=== PATIENT | female | born 1940 | race Caucasian/White ===

== ENCOUNTER 2022-06-04 12:19 | Emergency (ER) | payer MEDICARE, SELFPAY ==
[2022-06-04 12:21] VITALS: BP 198/74; PULSE 54; RESP 18; TEMP 36.6; O2SAT 97; BMI 33.4
--- NOTE | 2022-06-04 12:55 | EX.ED.DYSGE1 ---
HPI History of Present Illness Chief Complaint: Headache Detail of Chief Complaint: Scalp pain Informant: patient Onset/Context/Timing Onset: Yesterday Timing: Intermittent Narrative Narrative: Patient presents with intermittent sharp stabbing pain over the right posterior scalp. Symptoms started yesterday. She denies any known injury. She denies history of headaches or similar symptoms. [facility] Medical History Atrial fibrillation High cholesterol Hypertension Home Medications chlorthalidone 25 mg tablet 25 mg PO DAILY 06/04/22 [History Last Taken Unknown] flecainide 100 mg tablet 100 mg PO DAILY 06/04/22 [History Last Taken Unknown] gabapentin 300 mg capsule 300 mg PO BID #10 caps 06/04/22 [Rx Last Taken Unknown] lisinopril 40 mg tablet 40 mg PO DAILY 06/04/22 [History Last Taken Unknown] metoprolol succinate 25 mg tablet,extended release 24 hr 25 mg PO DAILY 06/04/22 [History Last Taken Unknown] pravastatin 20 mg tablet 20 mg PO QHS 06/04/22 [History Last Taken Unknown] prednisone 20 mg tablet 40 mg PO DAILY #10 tabs 06/04/22 [Rx Last Taken Unknown] Allergy/AdvReac Type Severity Reaction Status Date / Time No Known Allergies Allergy Verified 06/04/22 12:22 Social History Smoking Status: Never smoker ROS ROS ED Constitutional Constitutional ED: Denies chills or fever(s) Eyes Eyes: Denies change in vision or discharge from eye(s) ENT ENT ED: Denies discharge from eye(s), rhinorrhea or sore throat Cardiovascular Cardiovascular: Denies chest pain or palpitations Respiratory/Chest Respiratory/Chest: Denies cough or dyspnea Gastrointestinal Gastrointestinal: Denies abdominal pain, nausea or vomiting Musculoskeletal Musculoskeletal: Denies back pain, extremity pain or neck pain Integumentary Denies Abrasions or rash Neurologic Neurologic: Reports headache(s); Denies weakness Psychiatric Psychiatric: Denies anxiety or depression Allergic/Immunologic Allergic/Immunologic ED: Denies lip swelling or urticaria EXAM Physical Exam Const Vital Signs: 06/04/22 12:21 Temperature 98 F Temperature Source Temporal Pulse Rate 54 L Respiratory Rate 18 Blood Pressure 198/74 H Blood Pressure Mean 115 Pulse Ox 97 Oxygen Delivery Method Room Air Positive well nourished and well developed General Appearance ED: well developed HEENT Reports normocephalic and head/scalp atraumatic HEENT Narrative: Reproducible tenderness over the right posterior occipital scalp. No overlying skin change. Eyes PERRL and EOMs intact bilaterally Neck supple Chest Wall inspection of chest normal and palpation of chest normal Resp normal respiratory effort and clear to auscultation bilaterally Cardio regular rate and regular rhythm GI normal to inspection, nondistended, normoactive bowel sounds Palpation: soft Extremity normal to inspection Neuro oriented x3 and no sensory deficits noted Sensorium / Orientation: alert Motor Exam: strength 5/5 throughout Psych mental status grossly normal Skin no rashes or lesions noted MDM MDM MDM Narrative Medical decision making narrative: I looked in [facility] to find recent lab work, however cannot see anything since 2013. In light of this a CBC and chemistry draw is ordered. I wanted to evaluate her renal function prior to prescribing gabapentin. Lab Data Attestation: I reviewed the patient's lab results. Labs: Laboratory Results - last 24 hr 06/04/22 06/04/22 12:59 12:59 WBC 8.5 RBC 4.75 Hgb 14.5 Hct 42.9 MCV 90.3 MCH 30.5 MCHC 33.8 RDW Std Deviation 42.1 RDW Coeff of Kaia 12.8 Plt Count 221 MPV 11.1 Immature Gran % (Auto) 0.200 Neut % (Auto) 50.2 Lymph % (Auto) 38.2 [place] % (Auto) 5.4 Eos % (Auto) 5.4 H Baso % (Auto) 0.6 Absolute Neuts (auto) 4.2 Absolute Lymphs (auto) 3.23 Nucleated RBC % 0 Sodium 137 Potassium 3.5 Chloride 102 Carbon Dioxide 30.0 Anion Gap 5 BUN 28 H Creatinine 1.32 H Estim Creat Clear Calc 31.82 Est GFR (MDRD) Af Amer 50 L Est GFR (MDRD) Non-Af 41 L BUN/Creatinine Ratio 21.2 H Glucose 104 Calcium 9.7 Treatment and Re-Evaluation :: CBC is unremarkable. Chemistry studies significant for a BUN of 28 and creatinine 1.32. Creatinine clearance is 31. Patient's exam and story is consistent with neuropathic pain over the right scalp. I do not believe she needs imaging or further studies. She will be treated with a short course of gabapentin as well as prednisone. She will be referred to sherry Alonso on the no doc list for follow-up. Discharge Plan Triage Chief Complaint: Headache ED Provider: Gloria Alexandra Dx/Rx/DC Orders Clinical Impression: Neuropathic pain Instructions: ED Neuropathy, Peripheral Prescriptions: New gabapentin 300 mg capsule 300 mg PO BID Qty: 10 0RF prednisone 20 mg tablet 40 mg PO DAILY Qty: 10 0RF No Action chlorthalidone 25 mg tablet 25 mg PO DAILY flecainide 100 mg tablet 100 mg PO DAILY pravastatin 20 mg tablet 20 mg PO QHS metoprolol succinate 25 mg tablet extended release 24 hr 25 mg PO DAILY lisinopril 40 mg tablet 40 mg PO DAILY Primary Care Provider: Care Physician,No Primary Referrals: Jeanne Ramos MD [Med Staff - Learning Support Teacher] - 1-2 Weeks Care Physician,No Primary [Primary Care Provider] - Disposition Disposition: Home, Self Care
[2022-06-04 13:04] LABS: Absolute Lymphocyte Count 3.23 X10^3/uL (0.83-4.51); Absolute Neutrophil Count 4.2 X10^3/uL (2.0-7.7); Basophil# 0.05 X10^3/uL; Basophil% 0.6 % (0-1); Eosinophil# 0.46 X10^3/uL; Eosinophils% 5.4 % (0-5); Hematocrit 42.9 % (37-47); Hemoglobin 14.5 g/dL (12.0-15.0); Lymphocyte # 3.23 X10^3/ul (0.83-4.51); Lymphocyte % 38.2 % (19-41); Mean Corp Hgb Conc 33.8 g/dL (32-36); Mean Corpuscular Hgb 30.5 pg (27.0-32.0); Mean Corpuscular Volume 90.3 fL (81-99); Mean Platelet Vol. 11.1 fl (6.2-12.0); Monocyte# 0.46 X10^3/uL; Monocyte% 5.4 % (0-10); NRBC Flagged by Analyzer 0 % (0-5); Neutrophil # 4.23 X10^3/uL (2.7-7.7); Neutrophil % 50.2 % (47-70); Platelet Count 221 K/mm3 (150-450); RBC Distribution Width CV 12.8 % (11.6-14.6); RBC Distribution Width SD 42.1 fl (35.1-43.9); Red Blood Count 4.75 M/mm3 (4.2-5.4); White Blood Count 8.5 K/mm3 (4.4-11.0)
[2022-06-04 13:17] LABS: Anion Gap 5 (5-15); BUN 28 mg/dL (7-18); BUN/Creat Ratio 21.2 RATIO (10-20); Calcium,Total 9.7 mg/dL (8.5-10.1); Chloride 102 mmol/L (98-107); Creatinine, Serum 1.32 mg/dL (0.55-1.02); EST Glomerular Filtration Rate 41 mL/min (>60); Est Glom Filt Rate - Afr Amer 50 mL/min (>60); Estimated Creatinine Clearance 31.82 ml/min; Glucose 104 mg/dL (74-106); Potassium 3.5 mmol/L (3.5-5.1); Sodium Level 137 mmol/L (136-145)
[2022-06-04] MEDS: predniSONE 20 MG Tablet 40 MG PO (13:55)
[2022-06-04] MEDS: Gabapentin 300 MG Capsule PO (13:55)
[2022-06-04 13:56] VITALS: BP 135/48; PULSE 44; RESP 16; O2SAT 97
== END 2022-06-04 14:01 | disposition home or self-care (01) ==
PROVIDERS: Emergency Provider Emergency Medicine; Visit Provider Emergency Medicine
DX: G62.9 Polyneuropathy, unspecified (principal); E78.00 Pure hypercholesterolemia, unspecified; I10 Essential (primary) hypertension; Z79.899 Other long term (current) drug therapy; Z79.52 Long term (current) use of systemic steroids
CPT/HCPCS: 80048; 85025; 99284

== ENCOUNTER → 2023-11-09 | Outpatient (CLI) | payer MEDICARE, SELFPAY ==
--- NOTE | 2023-11-09 11:00 | RAD_ITS ---
EXAM: XR LEFT KNEE COMPLETE, 4 OR MORE VIEWS CLINICAL INDICATION: left therapy TECHNIQUE: Four or more views of the left knee. COMPARISON: No relevant prior studies available. FINDINGS: BONES/JOINTS: Marked narrowing of the medial knee joint compartment. Moderate marginal osteophytosis. No acute fracture, subluxation or joint effusion. Mild articular cartilage calcification. SOFT TISSUES: Normal. No soft tissue swelling or gas. No radiopaque foreign body. RAD/Knee 4 or More Views IMPRESSION: No acute abnormality. Prominent osteoarthritis Electronically Signed: Adam Luna MD at 13:09 EDT ,
[2023-11-09 12:47] LABS: Hematocrit 41.2 % (37-47); Hemoglobin 13.2 g/dL (12.0-15.0); Mean Corpuscular Volume 90.5 fL (81-99); Platelet Count 223 K/mm3 (150-450); RBC Distribution Width CV 13.3 % (11.6-14.6); RBC Distribution Width SD 44.3 fl (35.1-43.9); Red Blood Count 4.55 M/mm3 (4.2-5.4); White Blood Count 8.1 K/mm3 (4.4-11.0)
[2023-11-09 13:19] LABS: Vitamin D,25 Hydroxy 30.4 ng/mL
[2023-11-09 13:23] LABS: AST(SGOT) 11 U/L (15-37); Alanine Aminotransfer ALT/SGPT 13 U/L (13-56); Albumin, Serum 3.8 g/dL (3.2-5.0); Alkaline Phosphatase 91 U/L (45-117); Anion Gap 7 (5-15); BUN 17 mg/dL (7-18); BUN/Creat Ratio 12.5 RATIO (10-20); Calcium,Total 9.7 mg/dL (8.5-10.1); Chloride 104 mmol/L (98-107); Cholesterol 181 mg/dL (200); Creatinine, Serum 1.36 mg/dL (0.55-1.02); EST Glomerular Filtration Rate 40 mL/min (>60); Est Glom Filt Rate - Afr Amer 48 mL/min (>60); Globulin 3.7 g/dL (2.2-4.2); Glucose 101 mg/dL (74-106); High Density Lipoprotein 47 mg/dL; Potassium 3.7 mmol/L (3.5-5.1); Protein, Total 7.5 g/dL (6.4-8.2); Sodium Level 139 mmol/L (136-145); Triglycerides 178 mg/dL; Very Low Density Lipoprotein 36 mg/dL (5-40)
== END | disposition home or self-care (01) ==
LOC: MTLAB 10:57
PROVIDERS: PCP Family Medicine; Referring Provider Family Medicine; Visit Provider Family Medicine
DX: M25.562 Pain in left knee (principal); I48.91 Unspecified atrial fibrillation; I10 Essential (primary) hypertension; G89.29 Other chronic pain
CPT/HCPCS: 36415; 73564; 80053; 80061; 82306; 84443; 85027

== ENCOUNTER 2023-11-23 10:13 | Day surgery (SDC) | payer MEDICARE, SELFPAY ==
--- NOTE | 2023-11-23 10:25 | PCM.HP.BLA ---
History and Physical Date of Admission: 11/23/23 The patient is examined and there are no changes from the H&P dated 11/19/2010. Patient for excision of the lesion of the left upper eyelid with submission for pathologic evaluation. Informed consent was obtained. 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
[2023-11-23 10:41] VITALS: BP 153/70; PULSE 86; RESP 16; TEMP 36.3; O2SAT 100; BMI 31.4
[2023-11-23 10:52] VITALS: BP 119/69; BP 132/67; BP 132/82; BP 136/58; BP 138/54; BP 145/53; O2SAT 100; O2SAT 99
--- NOTE | 2023-11-23 11:10 | LES_PTH ---
PATIENT: DORENE MARROQUIN LOC: [facility] [place] U#:[id number] AGE/SX: 83/F ROOM: RE11/23/[address]: Dr. 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 AM. 11/27/2023 MICROSCOPIC DESCRIPTION Slides are reviewed. GROSS DESCRIPTION Received in fixative is one container labeled with the patient's name and designated Neoplasm of uncertain behavior of left upper eyelid. The specimen consists of light ballard-brown skin measuring 0.5 x 0.3 x 0.2cm. The specimen is inked, bisected and submitted entirely in one cassette. 11/26/2023 TC:5 CPT:55172
[2023-11-23] MEDS: Povidone Iodine 30 ML Opthalmic Sol 1 DRP (11:18)
[2023-11-23] MEDS: Lidocaine 1% /Epi 1:100 9 ML, Sodium Bicarbonate 1 MEQ OPERA.SITE (11:20)
[2023-11-23] MEDS: Erythromycin Base 1 OPTH.TUBE 1 APPLIC (11:30)
--- NOTE | 2023-11-23 11:32 | DCINST_ITS ---
Discharge Instructions Dressing / Incision Additional Dressing/Incision Instructions:: Keep your head elevated (recliner position) for the next 2-3 nights to help reduce swelling and bruising. Apply the ointment given to you (erythromycin ophthalmic ointment) once a day to the site. Follow Up Care Please Follow Up With: Dee Saleh MD When: 1 to 2 weeks Test Results: Test results from this visit will be discussed in further detail at your follow- up appointment, if applicable. Discharge Plan Admission Attending Provider: Dee Saleh Primary Care Provider: Bailey Maya Instructions Print Language: Vietnamese Discharge Orders/Prescriptions Prescriptions: No Action chlorthalidone 25 mg tablet 25 mg PO DAILY flecainide 100 mg tablet 100 mg PO DAILY pravastatin 20 mg tablet 20 mg PO QHS metoprolol succinate 25 mg tablet extended release 24 hr 25 mg PO DAILY lisinopril 40 mg tablet 40 mg PO DAILY gabapentin 300 mg capsule 300 mg PO BID Qty: 10 0RF prednisone 20 mg tablet 40 mg PO DAILY Qty: 10 0RF Referrals / Follow Up: Bailey Maya MD [Primary Care Provider] - Disposition Disposition (needs filled in before D/C Order can be placed): Home, Self Care
--- NOTE | 2023-11-23 11:34 | PCM.OPRPT ---
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 She presents for excision of the lesion with submission for pathologic evaluation. The patient is brought to the operating room and placed on the operating room table in the supine position. The face is prepped and draped in the usual sterile fashion. 1% Xylocaine with epinephrine buffered with sodium bicarb is used for local anesthetic. Following this, the site is elliptically excised and passed off the operative field to be sent to pathology. Hemostasis is controlled with cautery. The incision is then closed with a running plain gut suture. Ophthalmic antibiotic ointment is applied. She tolerated the procedure well was taken to the recovery area in an awake and stable condition. Needle and sponge counts are correct. Complications None Admit VTE Documentation VTE Mechan Device Prophylaxis: None Reason prophylaxis not ordered:: Treatment Not Indicated
[2023-11-23 12:04] VITALS: BP 170/58; PULSE 45; RESP 16; TEMP 36.1; O2SAT 100
== END 2023-11-23 12:09 | disposition home or self-care (01) ==
LOC: SDC 10:19 → AC 10:19
PROVIDERS: PCP Family Medicine; Referring Provider Plastic Surgery; Visit Provider Plastic Surgery
PROC: (CPT 11440; principal; 2023-11-23 11:00)
DX: L82.0 Inflamed seborrheic keratosis (principal)
CPT/HCPCS: 11440; 88305